=== PATIENT | male | born 1990 | race Caucasian/White ===

== ENCOUNTER 2017-07-21 17:26 | Emergency (ER) | payer SELFPAY ==
[2017-07-21] MEDS ORDERED: Sodium Chloride 0.9% 10 ML Syringe FLUSH PRN (17:57)
[2017-07-21] MEDS ORDERED: Sodium Chloride 0.9% 2.5 ML Syringe FLUSH PRN (17:57)
[2017-07-21] MEDS ORDERED: Lactated Ringers 1,000 ML IV ONE (18:01)
[2017-07-21] MEDS ORDERED: Ondansetron 4 MG/2 ML SDV IVPUSH ONE (18:03)
--- NOTE | 2017-07-21 18:08 | EDM.PDOC ---
<Deb Garber - Last Filed: 07/21/17 19:35> ED HPI GENERAL MEDICAL PROBLEM - General Chief Complaint: Abdominal Pain Stated Complaint: STOMACH PAINS/WEIGHT LOSS Time Seen by Provider: 07/21/17 17:53 - History of Present Illness INITIAL COMMENTS - FREE TEXT/NARRATIVE: Dr. Garber dictating an addendum note as I have assumed care of this case at 1900 hrs. The patient is comfortable in the room and moves easily and is nontoxic. He is aware of all lab tests results and the normal CT scan. I've advised him to try to eat and hydrate as best he can and to call the clinic tomorrow morning at 8 AM for an expedited follow-up appointment to have further testing and evaluation of his symptoms. I advised him on reasons to return to the ED. He seems somewhat discouraged as we were unable to find answers to his symptomatology but states understanding of need for follow-up. Due to his history of nausea with eating I will give him Zofran via [employer] Meds Impression: Right lower abdominal pain with unexplained weight loss etiology unclear - Related Data Allergies Allergy/AdvReac Type Severity Reaction Status Date / Time No Known Allergies Allergy Verified 07/21/17 17:41 Home Meds: Home Meds . [No Known Home Meds] 07/21/17 [History] ED ROS GENERAL - Review of Systems Review Of Systems: ROS reveals no pertinent complaints other than HPI. Course - Vital Signs Last Recorded V/S: Last Vital Signs Temp 99.3 F 07/21/17 19:44 Pulse 75 07/21/17 19:44 Resp 16 07/21/17 19:44 BP 120/80 07/21/17 19:44 Pulse Ox 98 07/21/17 19:44 - Orders/Labs/Meds Orders: Active Orders 24 hr Category Date Time Status Abdomen Pelvis w Cont [CT] Stat Exams 07/21/17 18:02 Taken Saline Lock Insert [OM.PC] Stat Oth 07/21/17 17:57 Ordered Labs: Laboratory Tests 07/21/17 07/21/17 07/21/17 Range/Units 18:10 18:10 19:32 WBC 7.11 (4.0-11.0) K/uL RBC 5.09 (4.50-5.90) M/uL Hgb 15.5 (13.0-17.0) g/dL Hct 43.2 (38.0-50.0) % MCV 84.9 (80.0-98.0) fL MCH 30.5 (27.0-32.0) pg MCHC 35.9 (31.0-37.0) g/dL RDW Std Deviation 37.5 (28.0-62.0) fl RDW Coeff of Ghanshyam 12 (11.0-15.0) % Plt Count 179 (150-400) K/uL MPV 9.60 (7.40-12.00) fL Neut % (Auto) 71.2 (48.0-80.0) % Lymph % (Auto) 18.8 (16.0-40.0) % [place] % (Auto) 7.7 (0.0-15.0) % Eos % (Auto) 2.0 (0.0-7.0) % Baso % (Auto) 0.3 (0.0-1.5) % Neut # (Auto) 5.1 (1.4-5.7) K/uL Lymph # (Auto) 1.3 (0.6-2.4) K/uL [place] # (Auto) 0.6 (0.0-0.8) K/uL Eos # (Auto) 0.1 (0.0-0.7) K/uL Baso # (Auto) 0.0 (0.0-0.1) K/uL Nucleated RBC % 0.0 /100WBC Nucleated RBCs # 0 K/uL Sodium 143 (136-148) mmol/L Potassium 3.7 (3.5-5.1) mmol/L Chloride 106 (98-107) mmol/L Carbon Dioxide 27.5 (21.0-32.0) mmol/L BUN 16 (7.0-18.0) mg/dL Creatinine 1.0 (0.8-1.3) mg/dL Est Cr Clr Drug Dosing 103.74 mL/min Estimated GFR (MDRD) > 60.0 ml/min Glucose 97 (74-106) mg/dL Calcium 8.6 (8.5-10.1) mg/dL Total Bilirubin 0.7 (0.2-1.0) mg/dL AST 24 (15-37) IU/L ALT 20 (14-63) IU/L Alkaline Phosphatase 59 (46-116) U/L Total Protein 6.8 (6.4-8.2) g/dL Albumin 4.3 (3.4-5.0) g/dL Globulin 2.5 (2.0-3.5) g/dL Albumin/Globulin Ratio 1.7 (1.3-2.8) Lipase 190 (73-393) U/L Urine Color YELLOW Urine Appearance CLEAR Urine pH 6.0 (5.0-8.0) Ur Specific [place] <= 1.005 (1.001-1.035) Urine Protein NEGATIVE (NEGATIVE) mg/dL Urine Glucose (UA) NEGATIVE (NEGATIVE) mg/dL Urine Ketones NEGATIVE (NEGATIVE) mg/dL Urine Occult Blood NEGATIVE (NEGATIVE) Urine Nitrite NEGATIVE (NEGATIVE) Urine Bilirubin NEGATIVE (NEGATIVE) Urine Urobilinogen 0.2 (<2.0) EU/dL Ur Leukocyte Esterase NEGATIVE (NEGATIVE) Urine RBC 0-1 (0-2/HPF) Urine WBC 0-1 (0-5/HPF) Ur Epithelial Cells RARE (NONE-FEW) Urine Bacteria RARE (NEGATIVE) Meds: Medications Discontinued Medications Generic Name Dose Route Start Last Admin Trade Name Freq PRN Reason Stop Dose Admin Lactated Ringer's 1,000 mls @ 999 mls/hr 07/21/17 18:01 07/21/17 18:12 Ringers, Lactated IV 07/21/17 19:01 999 mls/hr .BOLUS ONE Administration Iopamidol 83 ml 07/21/17 19:07 07/21/17 19:07 Isovue-370 (76%) IVPUSH 07/21/17 19:08 83 ml ONETIME STA Administration Ondansetron HCl 4 mg 07/21/17 18:03 07/21/17 19:49 Zofran IVPUSH 07/21/17 18:04 Not Given ONETIME ONE Sodium Chloride 10 ml 07/21/17 17:57 Saline Flush FLUSH ASDIRECTED PRN Keep Vein Open Sodium Chloride 2.5 ml 07/21/17 17:57 Saline Flush FLUSH ASDIRECTED PRN Keep Vein Open Departure - Departure Time of Disposition: 19:36 Disposition: Home, Self-Care 01 Condition: Good Clinical Impression: Weight loss, abnormal Abdominal pain Qualifiers: Abdominal location: right lower quadrant Qualified Code(s): R10.31 - Right lower quadrant pain - Discharge Information Instructions: Abdominal Pain, Adult, [id number] Referrals: PCP,None [Primary Care Provider] - Forms: ED Department Discharge Additional Instructions: The following information is given to patients seen in the emergency department who are being discharged to home. This information is to outline your options for follow-up care. We provide all patients seen in our emergency department with a follow-up referral. The need for follow-up, as well as the timing and circumstances, are variable depending upon the specifics of your emergency department visit. If you don't have a primary care physician on staff, we will provide you with a referral. We always advise you to contact your personal physician following an emergency department visit to inform them of the circumstance of the visit and for follow-up with them and/or the need for any referrals to a consulting specialist. The emergency department will also refer you to a specialist when appropriate. This referral assures that you have the opportunity for follow-up care with a specialist. All of these measure are taken in an effort to provide you with optimal care, which includes your follow-up. Under all circumstances we always encourage you to contact your private physician who remains a resource for coordinating your care. When calling for follow-up care, please make the office aware that this follow-up is from your recent emergency room visit. If for any reason you are refused follow-up, please contact the [facility] Emergency Department at and asked to speak to the emergency department charge nurse. [facility] [address] [place] [id number] Please call the clinic tomorrow at 8 AM to schedule an expedited ER follow-up appointment as we discussed. Try to push hydration and eat small high-calorie meals as you are able. Return to ER as needed and as discussed. Please use Zofran as needed for nausea that you have been prescribed to be [employer] Meds - My Orders Last 24 Hours: My Active Orders 07/21/17 17:57 Saline Lock Insert [OM.PC] Stat 07/21/17 18:02 Abdomen Pelvis w Cont [CT] Stat - Assessment/Plan Last 24 Hours: My Active Orders 07/21/17 17:57 Saline Lock Insert [OM.PC] Stat 07/21/17 18:02 Abdomen Pelvis w Cont [CT] Stat <Ev Palacios - Last Filed: 07/22/17 07:12> ED HPI GENERAL MEDICAL PROBLEM - General Source of Information: Reports: Patient History Limitations: Reports: No Limitations - History of Present Illness INITIAL COMMENTS - FREE TEXT/NARRATIVE: History of present illness: []Patient's had 6 days of right lower quadrant pain, nausea and anorexia. He has lost 15 lobs in 6 days, but is eating less. He normally eats 7 times a day and he's only been able to eat once a day and a very little before he starts feeling pain and fullness. He denies any vomiting, bloody stools, abdominal trauma, diarrhea, fevers or pain\difficulty urinating. Patient has not had any previous abdominal surgeries. Review of systems: As per history of present illness and below otherwise all systems reviewed and negative. Past medical history: As per history of present illness and as reviewed below otherwise noncontributory. Surgical history: As per history of present illness and as reviewed below otherwise noncontributory. Social history: No reported history of drug or alcohol abuse. Family history: As per history of present illness and as reviewed below otherwise noncontributory. Physical exam: General: Well developed, well nourished in NAD HEENT: Atraumatic, normocephalic, pupils reactive, negative for conjunctival pallor or scleral icterus, mucous membranes moist, throat clear, neck supple, nontender, trachea midline. Lungs: Clear to auscultation, breath sounds equal bilaterally, chest nontender. Heart: S1S2, regular, negative for clicks, rubs, or JVD. Abdomen: Soft, nondistended, right lower quadrant tenderness without rebound or guarding. Negative for masses or hepatosplenomegaly. Negative for costovertebral tenderness. Pelvis: Stable nontender. Genitourinary: Deferred. Rectal: Deferred. Extremities: Atraumatic, negative for cords or calf pain. Neurovascular unremarkable. Neuro: Awake, alert, oriented. Cranial nerves II through XII unremarkable. Cerebellum unremarkable. Motor and sensory unremarkable throughout. Exam nonfocal. Diagnostics: []CBC-normal, chemistries normal: lipase, UA, CT abdomen and pelvis are pending at the time of this dictation Therapeutics: []IVF, zofran Impression: [] Plan: [] Definitive disposition and diagnosis as appropriate pending reevaluation and review of above. Past Medical History Cardiovascular History: Reports: Hypertension Other Cardiovascular History: Pt states he was taking Atenolol for HTN but ran out of medication 8 months ago and never got it refilled. - Infectious Disease History Infectious Disease History: Reports: Chicken Pox, Shingles Social & Family History - Family History Family Medical History: Noncontributory - Tobacco Use Smoking Status *Q: Former Smoker Years of Tobacco use: 12 Packs/Tins Daily: 2 Used Tobacco, but Quit: Yes Month Tobacco Last Used: - Caffeine Use Caffeine Use: Reports: None - Recreational Drug Use Recreational Drug Use: No ED ROS GENERAL - Review of Systems Review Of Systems: See Below (See history of present illness) ED EXAM, GI/ABD - Physical Exam Exam: See Below (See history of present illness) Course - Orders/Labs/Meds Labs: Laboratory Tests 07/21/17 07/21/17 07/21/17 Range/Units 18:10 18:10 19:32 WBC 7.11 (4.0-11.0) K/uL RBC 5.09 (4.50-5.90) M/uL Hgb 15.5 (13.0-17.0) g/dL Hct 43.2 (38.0-50.0) % MCV 84.9 (80.0-98.0) fL MCH 30.5 (27.0-32.0) pg MCHC 35.9 (31.0-37.0) g/dL RDW Std Deviation 37.5 (28.0-62.0) fl RDW Coeff of Ghanshyam 12 (11.0-15.0) % Plt Count 179 (150-400) K/uL MPV 9.60 (7.40-12.00) fL Neut % (Auto) 71.2 (48.0-80.0) % Lymph % (Auto) 18.8 (16.0-40.0) % [place] % (Auto) 7.7 (0.0-15.0) % Eos % (Auto) 2.0 (0.0-7.0) % Baso % (Auto) 0.3 (0.0-1.5) % Neut # (Auto) 5.1 (1.4-5.7) K/uL Lymph # (Auto) 1.3 (0.6-2.4) K/uL [place] # (Auto) 0.6 (0.0-0.8) K/uL Eos # (Auto) 0.1 (0.0-0.7) K/uL Baso # (Auto) 0.0 (0.0-0.1) K/uL Nucleated RBC % 0.0 /100WBC Nucleated RBCs # 0 K/uL Sodium 143 (136-148) mmol/L Potassium 3.7 (3.5-5.1) mmol/L Chloride 106 (98-107) mmol/L Carbon Dioxide 27.5 (21.0-32.0) mmol/L BUN 16 (7.0-18.0) mg/dL Creatinine 1.0 (0.8-1.3) mg/dL Est Cr Clr Drug Dosing 103.74 mL/min Estimated GFR (MDRD) > 60.0 ml/min Glucose 97 (74-106) mg/dL Calcium 8.6 (8.5-10.1) mg/dL Total Bilirubin 0.7 (0.2-1.0) mg/dL AST 24 (15-37) IU/L ALT 20 (14-63) IU/L Alkaline Phosphatase 59 (46-116) U/L Total Protein 6.8 (6.4-8.2) g/dL Albumin 4.3 (3.4-5.0) g/dL Globulin 2.5 (2.0-3.5) g/dL Albumin/Globulin Ratio 1.7 (1.3-2.8) Lipase 190 (73-393) U/L Urine Color YELLOW Urine Appearance CLEAR Urine pH 6.0 (5.0-8.0) Ur Specific [place] <= 1.005 (1.001-1.035) Urine Protein NEGATIVE (NEGATIVE) mg/dL Urine Glucose (UA) NEGATIVE (NEGATIVE) mg/dL Urine Ketones NEGATIVE (NEGATIVE) mg/dL Urine Occult Blood NEGATIVE (NEGATIVE) Urine Nitrite NEGATIVE (NEGATIVE) Urine Bilirubin NEGATIVE (NEGATIVE) Urine Urobilinogen 0.2 (<2.0) EU/dL Ur Leukocyte Esterase NEGATIVE (NEGATIVE) Urine RBC 0-1 (0-2/HPF) Urine WBC 0-1 (0-5/HPF) Ur Epithelial Cells RARE (NONE-FEW) Urine Bacteria RARE (NEGATIVE)
[2017-07-21 18:40] LABS: CHLORIDE,CL 106 mmol/L (98-107); SODIUM,NA 143 mmol/L (136-148)
[2017-07-21] MEDS ORDERED: Iopamidol 755 Mg/ML 100 ML Bottle IVPUSH STA (19:07)
--- NOTE | 2017-07-22 16:15 | CT ---
EXAM DATE: 07/21/17 PATIENT'S AGE: 27 Patient: JEFF SUTTON Facility: [place], [place] Site . Site : 1990 Study: CT Abdomen/Pelvis W CONT [id number]/[id number] 7:10:24 PM Ordering Physician: Philip Carreno Final Report: TECHNIQUE: IV contrast-enhanced CT abdomen and pelvis. 83 mL Isovue-370 injected. INDICATIONS: Abdominal pain, nausea, vomiting, weight loss. FINDINGS: Motion artifact on the exam. The liver, spleen, kidneys, adrenal glands and pancreas appear normal. Bowel is unremarkable. No adenopathy, free air, or free fluid. Lung bases are clear. IMPRESSION: Normal abdomen pelvis CT. Please note that all CT scans performed at this facility use dose modulation, iterative reconstruction, and/or weight based dosing when appropriate to reduce radiation dose to as low as reasonably achievable. Dictated by Neil Levy MD @ 07/21/2017 7:29:53 PM Dictated by: Neil Levy MD @ 07/21/2017 19:29:58 (Electronic Signature) Report Signed by Proxy. [facility]SK[facility]AL MEDICAL CENTERJohn Paul
== END 2017-07-21 19:44 | disposition home or self-care (01) ==
LOC: MW.ED 17:26
DX: R10.31 Right lower quadrant pain (principal); I10 Essential (primary) hypertension; Z87.891 Personal history of nicotine dependence
CPT/HCPCS: 36415; 74177; 80053; 81001; 83690; 85025; 96365; 96366; 99284; J7120; Q9967

== ENCOUNTER 2019-04-09 03:50 | Emergency (ER) | payer SELFPAY ==
[2019-04-09] MEDS ORDERED: Sodium Chloride 0.9% 1,000 ML IV ONE (03:59)
[2019-04-09] MEDS ORDERED: Ketorolac 30 MG/ML SDV IVPUSH ONE (03:59)
[2019-04-09] MEDS ORDERED: Ondansetron 4 MG/2 ML SDV IVPUSH ONE (03:59)
--- NOTE | 2019-04-09 04:00 | EDM.PDOC ---
ED HPI GENERAL MEDICAL PROBLEM - General Chief Complaint: Abdominal Pain Stated Complaint: ABDOMINAL PAIN Time Seen by Provider: 04/09/19 03:59 Source of Information: Reports: Patient - History of Present Illness INITIAL COMMENTS - FREE TEXT/NARRATIVE: HISTORY AND PHYSICAL: History of present illness: [Shunt presents with abdominal pain] begin work today he rates 3 out of 10 nonradiating right and left lower quadrant Extended stay post lab and imaging patient fell asleep in no distress actively awake and for discharge Review of systems: As per history of present illness and below otherwise all systems reviewed and negative. Past medical history: As per history of present illness and as reviewed below otherwise noncontributory. Surgical history: As per history of present illness and as reviewed below otherwise noncontributory. Social history: No reported history of drug or alcohol abuse. Family history: As per history of present illness and as reviewed below otherwise noncontributory. Physical exam: HEENT: Atraumatic, normocephalic, pupils reactive, negative for conjunctival pallor or scleral icterus, mucous membranes moist, throat clear, neck supple, nontender, trachea midline. Lungs: Clear to auscultation, breath sounds equal bilaterally, chest nontender. Heart: S1S2, regular, negative for clicks, rubs, or JVD. Abdomen: Soft, nondistended, tenderness on deep palpation in right and left lower quadrants eating or rebound Negative for masses or hepatosplenomegaly. Negative for costovertebral tenderness. Pelvis: Stable nontender. Genitourinary: Deferred. Rectal: Deferred. Extremities: Atraumatic, negative for cords or calf pain. Neurovascular unremarkable. Neuro: Awake, alert, oriented. Cranial nerves II through XII unremarkable. Cerebellum unremarkable. Motor and sensory unremarkable throughout. Exam nonfocal. Diagnostics: []CBC CMP UA lipase cT abdomen pelvis with contrast Therapeutics: [Normal saline Toradol Zofran ] Impression: [abdominal l pain ]-resolved Definitive disposition and diagnosis as appropriate pending reevaluation and review of above. abdominal Pain Score (Numeric/FACES): 5 - Related Data Allergies Allergy/AdvReac Type Severity Reaction Status Date / Time No Known Allergies Allergy Verified 04/09/19 03:52 Home Meds: Home Meds . [No Known Home Meds] 07/21/17 [History] Past Medical History Cardiovascular History: Reports: Hypertension Other Cardiovascular History: Pt states he was taking Atenolol for HTN but ran out of medication 8 months ago and never got it refilled. - Infectious Disease History Infectious Disease History: Reports: Chicken Pox, Shingles Social & Family History - Family History Family Medical History: Noncontributory - Caffeine Use Caffeine Use: Reports: None ED ROS GENERAL - Review of Systems Review Of Systems: See Below ED EXAM, GENERAL - Physical Exam Exam: See Below Course - Vital Signs Last Recorded V/S: Last Vital Signs Temp 97.2 F 04/09/19 03:52 Pulse 98 04/09/19 03:52 Resp 16 04/09/19 03:52 BP 146/93 H 04/09/19 03:52 Pulse Ox 98 04/09/19 03:52 - Orders/Labs/Meds Labs: Laboratory Tests 04/09/19 04/09/19 04/09/19 Range/Units 04:00 04:00 04:02 WBC 8.25 (4.0-11.0) K/uL RBC 5.15 (4.50-5.90) M/uL Hgb 15.9 (13.0-17.0) g/dL Hct 44.2 (38.0-50.0) % MCV 85.8 (80.0-98.0) fL MCH 30.9 (27.0-32.0) pg MCHC 36.0 (31.0-37.0) g/dL RDW Std Deviation 38.3 (28.0-62.0) fl RDW Coeff of Ghanshyam 12 (11.0-15.0) % Plt Count 211 (150-400) K/uL MPV 10.10 (7.40-12.00) fL Neut % (Auto) 67.2 (48.0-80.0) % Lymph % (Auto) 23.4 (16.0-40.0) % [place] % (Auto) 7.4 (0.0-15.0) % Eos % (Auto) 1.8 (0.0-7.0) % Baso % (Auto) 0.2 (0.0-1.5) % Neut # (Auto) 5.5 (1.4-5.7) K/uL Lymph # (Auto) 1.9 (0.6-2.4) K/uL [place] # (Auto) 0.6 (0.0-0.8) K/uL Eos # (Auto) 0.2 (0.0-0.7) K/uL Baso # (Auto) 0.0 (0.0-0.1) K/uL Nucleated RBC % 0.0 /100WBC Nucleated RBCs # 0 K/uL Sodium 142 (136-148) mmol/L Potassium 3.7 (3.5-5.1) mmol/L Chloride 104 (98-107) mmol/L Carbon Dioxide 27.9 (21.0-32.0) mmol/L BUN 15 (7.0-18.0) mg/dL Creatinine 1.0 (0.8-1.3) mg/dL Est Cr Clr Drug Dosing TNP Estimated GFR (MDRD) > 60.0 ml/min Glucose 81 (74-106) mg/dL Calcium 8.7 (8.5-10.1) mg/dL Total Bilirubin 0.8 (0.2-1.0) mg/dL AST 16 (15-37) IU/L ALT 19 (14-63) IU/L Alkaline Phosphatase 66 (46-116) U/L Total Protein 7.5 (6.4-8.2) g/dL Albumin 4.5 (3.4-5.0) g/dL Globulin 3.0 (2.6-4.0) g/dL Albumin/Globulin Ratio 1.5 (0.9-1.6) Lipase 182 (73-393) U/L Urine Color YELLOW Urine Appearance CLEAR Urine pH 6.0 (5.0-8.0) Ur Specific [place] >= 1.030 (1.001-1.035) Urine Protein NEGATIVE (NEGATIVE) mg/dL Urine Glucose (UA) NEGATIVE (NEGATIVE) mg/dL Urine Ketones NEGATIVE (NEGATIVE) mg/dL Urine Occult Blood NEGATIVE (NEGATIVE) Urine Nitrite NEGATIVE (NEGATIVE) Urine Bilirubin NEGATIVE (NEGATIVE) Urine Urobilinogen 0.2 (<2.0) EU/dL Ur Leukocyte Esterase NEGATIVE (NEGATIVE) Meds: Medications Discontinued Medications Generic Name Dose Route Start Last Admin Trade Name Freq PRN Reason Stop Dose Admin Sodium Chloride 1,000 mls @ 999 mls/hr 04/09/19 03:59 04/09/19 04:08 Normal Saline IV 04/09/19 04:59 999 mls/hr STAT ONE Administration Iopamidol 100 ml 04/09/19 04:58 04/09/19 04:59 Isovue Multipack-370 (76%) IVPUSH 04/09/19 04:59 100 ml ONETIME STA Administration Ketorolac Tromethamine 30 mg 04/09/19 03:59 04/09/19 04:08 Toradol IVPUSH 04/09/19 04:00 30 mg ONETIME ONE Administration Ondansetron HCl 8 mg 04/09/19 03:59 04/09/19 04:08 Zofran IVPUSH 04/09/19 04:00 8 mg ONETIME ONE Administration Departure - Departure Time of Disposition: 05:45 Disposition: Home, Self-Care 01 Condition: Good Clinical Impression: Abdominal pain Qualifiers: Abdominal location: right lower quadrant Qualified Code(s): R10.31 - Right lower quadrant pain - Discharge Information Referrals: PCP,None [Primary Care Provider] - Forms: ED Department Discharge Additional Instructions: The following information is given to patients seen in the emergency department who are being discharged to home. This information is to outline your options for follow-up care. We provide all patients seen in our emergency department with a follow-up referral. The need for follow-up, as well as the timing and circumstances, are variable depending upon the specifics of your emergency department visit. If you don't have a primary care physician on staff, we will provide you with a referral. We always advise you to contact your personal physician following an emergency department visit to inform them of the circumstance of the visit and for follow-up with them and/or the need for any referrals to a consulting specialist. The emergency department will also refer you to a specialist when appropriate. This referral assures that you have the opportunity for follow-up care with a specialist. All of these measure are taken in an effort to provide you with optimal care, which includes your follow-up. Under all circumstances we always encourage you to contact your private physician who remains a resource for coordinating your care. When calling for follow-up care, please make the office aware that this follow-up is from your recent emergency room visit. If for any reason you are refused follow-up, please contact the [facility] emergency department at and asked to speak to the emergency department charge nurse.
[2019-04-09 04:32] LABS: BLOOD UREA NITROGEN,BUN 15 mg/dL (7.0-18.0); CARBON DIOXIDE,CO2 27.9 mmol/L (21.0-32.0); CHLORIDE,CL 104 mmol/L (98-107); GLUCOSE RANDOM 81 mg/dL (74-106); LIPASE 182 U/L (73-393); POTASSIUM,K 3.7 mmol/L (3.5-5.1); SODIUM,NA 142 mmol/L (136-148)
[2019-04-09] MEDS ORDERED: Iopamidol 755 MG/ML 500 ML Multipack Bottle IVPUSH STA (04:58)
--- NOTE | 2019-04-09 05:28 | CT ---
INDICATION: Lower abdominal pain TECHNIQUE: CT abdomen and pelvis acquired with initial noncontrast images followed by 100 cc Isovue 370 intravenous contrast. COMPARISON: None. FINDINGS: Lower chest: Unremarkable. Liver: Unremarkable. Normal in size and attenuation. No masses. Gallbladder and bile ducts: Contracted gallbladder without gross pericholecystic inflammation. Pancreas: Unremarkable. No mass or inflammation. Spleen: Unremarkable. Normal in size. No masses. Adrenal glands: Unremarkable. No nodules. Kidneys: Unremarkable. No masses, stones, or hydronephrosis. GI tract: Stomach is unremarkable. There are no dilated loops of large or small intestine. Appendix partially seen and appears unremarkable. No localizing inflammation fruit Vasculature: Unremarkable. Pelvis: Unremarkable. Bones: Unremarkable for age. IMPRESSION: Unremarkable abdomen and pelvis CT. No dilated bowel or localizing inflammation. Please note that all CT scans at this facility use dose modulation, iterative reconstruction, and/or weight-based dosing when appropriate to reduce radiation dose to as low as reasonably achievable. Dictated by Tu Torres MD @ Apr 09 2019 5:17AM Signed by Dr. Tu Torres @ Apr 09 2019 5:26AM
== END 2019-04-09 06:35 | disposition home or self-care (01) ==
LOC: MW.ED 03:50
DX: R10.31 Right lower quadrant pain (principal); I10 Essential (primary) hypertension
CPT/HCPCS: 36415; 74178; 80053; 81003; 83690; 85025; 96374; 96375; 99284; J1885; J2405; J7040; Q9967

== ENCOUNTER 2019-05-02 14:28 | Emergency (ER) | payer BC, OTHER ==
--- NOTE | 2019-05-02 15:18 | EDM.PDOC ---
ED HPI GENERAL MEDICAL PROBLEM - General Chief Complaint: ENT Problem Stated Complaint: SORE THROAT Time Seen by Provider: 05/02/19 15:18 Source of Information: Reports: Patient History Limitations: Reports: No Limitations - History of Present Illness INITIAL COMMENTS - FREE TEXT/NARRATIVE: HISTORY AND PHYSICAL: History of present illness: Patient is a 29-year-old male presents to the ED with complaint of fever, sore throat, and cough x 1 day. He denies nausea, vomiting, diarrhea, abdominal pain , chest pain, shortness of breath. He is taking OTC mucinex for symptoms. Denies significant past medical history. Review of systems: As per history of present illness and below otherwise all systems reviewed and negative. Past medical history: As per history of present illness and as reviewed below otherwise noncontributory. Surgical history: As per history of present illness and as reviewed below otherwise noncontributory. Social history: No reported history of drug or alcohol abuse. Family history: As per history of present illness and as reviewed below otherwise noncontributory. Physical exam: General: Patient sitting comfortably in no acute distress and nontoxic appearing HEENT: Atraumatic, normocephalic, pupils reactive, negative for conjunctival pallor or scleral icterus, mucous membranes moist, throat clear, neck supple, nontender, trachea midline. No meningeal signs. Lungs: Clear to auscultation, breath sounds equal bilaterally, chest nontender. Heart: S1S2, regular, negative for clicks, rubs, or overt murmur. Abdomen: Soft, nondistended, nontender. Negative for masses or hepatosplenomegaly. Negative for costovertebral tenderness. No rigidity, rebound , guarding. Pelvis: Stable nontender. Genitourinary: Deferred. Rectal: Deferred. Extremities: Atraumatic, negative for cords or calf pain. Neurovascular unremarkable. Neuro: Awake, alert, oriented. Cranial nerves II through XII unremarkable. Cerebellum unremarkable. Motor and sensory unremarkable throughout. Exam nonfocal. Notes: Diagnostics: Rapid strep, influenza Therapeutics: [] Prescriptions: Tamiflu Impression: Influenza B Definitive disposition and diagnosis as appropriate pending reevaluation and review of above. Throat Pain Score (Numeric/FACES): 2 - Related Data Allergies Allergy/AdvReac Type Severity Reaction Status Date / Time No Known Allergies Allergy Verified 05/02/19 14:52 Home Meds: Home Meds Oseltamivir [Tamiflu] 75 mg PO BID 5 Days #10 cap 05/02/19 [Rx] Past Medical History - Past Health History Medical/Surgical History: Denies Medical/Surgical History HEENT History: Reports: None Cardiovascular History: Reports: Hypertension Other Cardiovascular History: Pt states he was taking Atenolol for HTN but ran out of medication 8 months ago and never got it refilled. Respiratory History: Reports: None Gastrointestinal History: Reports: None Genitourinary History: Reports: None Musculoskeletal History: Reports: None Psychiatric History: Reports: None Endocrine/Metabolic History: Reports: None Hematologic History: Reports: None Oncologic (Cancer) History: Reports: None Dermatologic History: Reports: None - Infectious Disease History Infectious Disease History: Reports: Chicken Pox, Shingles Social & Family History - Family History Family Medical History: Noncontributory - Tobacco Use Smoking Status *Q: Current Every Day Smoker Years of Tobacco use: 15 Packs/Tins Daily: 2 - Caffeine Use Caffeine Use: Reports: Coffee, Energy Drinks, Soda, Tea - Recreational Drug Use Recreational Drug Use: No ED ROS ENT - Review of Systems Review Of Systems: Comprehensive ROS is negative, except as noted in HPI. ED EXAM, ENT - Physical Exam Exam: See Below (see dictation) Course - Vital Signs Last Recorded V/S: Last Vital Signs Temp 100.8 F H 05/02/19 14:53 Pulse 105 H 05/02/19 14:53 Resp 19 05/02/19 14:53 BP 139/82 05/02/19 14:53 Pulse Ox 97 05/02/19 14:53 - Orders/Labs/Meds Orders: Active Orders 24 hr Category Date Time Status CULTURE STREP A CONFIRMATION [RM] Stat Lab 05/02/19 14:58 Results STREP SCRN A RAPID W CULT CONF [RM] Stat Lab 05/02/19 14:58 Results Departure - Departure Time of Disposition: 15:32 Disposition: Home, Self-Care 01 Condition: Good Clinical Impression: Influenza B - Discharge Information Prescriptions: Oseltamivir [Tamiflu] 75 mg PO BID 5 Days #10 cap Referrals: PCP,Not In Area [Primary Care Provider] - Forms: ED Department Discharge Additional Instructions: The following information is given to patients seen in the emergency department who are being discharged to home. This information is to outline your options for follow-up care. We provide all patients seen in our emergency department with a follow-up referral. The need for follow-up, as well as the timing and circumstances, are variable depending upon the specifics of your emergency department visit. If you don't have a primary care physician on staff, we will provide you with a referral. We always advise you to contact your personal physician following an emergency department visit to inform them of the circumstance of the visit and for follow-up with them and/or the need for any referrals to a consulting specialist. The emergency department will also refer you to a specialist when appropriate. This referral assures that you have the opportunity for follow-up care with a specialist. All of these measure are taken in an effort to provide you with optimal care, which includes your follow-up. Under all circumstances we always encourage you to contact your private physician who remains a resource for coordinating your care. When calling for follow-up care, please make the office aware that this follow-up is from your recent emergency room visit. If for any reason you are refused follow-up, please contact the [facility] Emergency Department at and asked to speak to the emergency department charge nurse. [facility] [address] [place] [address] [place] [id number] Take tamiflu as instructed Alternate tylenol and motrin as needed Follow up with primary care provider Return to ED as needed as discussed Sepsis Event Note - Evaluation Sepsis Screening Result: Possible Sepsis Risk - Focused Exam Vital Signs: Vital Signs Temp Pulse Resp BP Pulse Ox 05/02/19 14:53 100.8 F H 105 H 19 139/82 97 Date Exam was Performed: 05/02/19 Time Exam was Performed: 15:32 - My Orders Last 24 Hours: My Active Orders 05/02/19 14:58 CULTURE STREP A CONFIRMATION [RM] Stat STREP SCRN A RAPID W CULT CONF [RM] Stat - Assessment/Plan Last 24 Hours: My Active Orders 05/02/19 14:58 CULTURE STREP A CONFIRMATION [RM] Stat STREP SCRN A RAPID W CULT CONF [RM] Stat
== END 2019-05-02 15:51 | disposition home or self-care (01) ==
LOC: MW.ED 14:28
DX: J10.1 Influenza due to other identified influenza virus with other respiratory manifestations (principal); I10 Essential (primary) hypertension; F17.210 Nicotine dependence, cigarettes, uncomplicated; Z79.899 Other long term (current) drug therapy
CPT/HCPCS: 87081; 87804; 87880-QW; 99283